=== PATIENT | male | born 1960 | race African-American/Black ===

== ENCOUNTER 2017-09-20 09:46 | Emergency (ER) | payer OTHER ==
[~2017-09-20] VITALS: Ht 165.1 cm; Wt 84.0 kg
[~2017-09-20 09:46] MED LIST: INSULIN; LEXAPRIL; METOPROLOL
[2017-09-20 09:56] VITALS: BP 204/118
[2017-09-20] MEDS ORDERED: LISI2.5T47 PO (10:00)
== END 2017-09-20 20:19 | disposition left against medical advice (07) ==
LOC: ER 09:46
DX: Z53.21 Procedure and treatment not carried out due to patient leaving prior to being seen by health care provider (principal)